=== PATIENT | male | born 1995 | race Caucasian/White ===

== ENCOUNTER 2021-10-15 14:01 | Emergency (ER) | payer OTHER ==
[~2021-10-15] VITALS: Ht 175.3 cm; Wt 65.8 kg
[2021-10-15] MEDS ORDERED: Norco 5-325 Ta1 EACH PO (14:48)
== END 2021-10-15 15:13 | disposition home or self-care (01) ==
LOC: ER 14:01
DX: S93.402A Sprain of unspecified ligament of left ankle, initial encounter (principal); Z88.0 Allergy status to penicillin; W18.30XA Fall on same level, unspecified, initial encounter
CPT/HCPCS: 29515; 73610; 99283-25; A9270

== ENCOUNTER 2024-05-07 20:01 | Emergency (ER) | payer OTHER ==
[~2024-05-07] VITALS: Ht 175.3 cm; Wt 90.7 kg
[~2024-05-07 20:01] MED LIST: Norco 5-325 Ta1 EACH PO
[2024-05-07] MEDS ORDERED: FentaNYL Citrate 50 MCG/ML 2 ML Injection IV ONE (20:15)
[2024-05-07] MEDS ORDERED: Ondansetron HCl 2 MG / ML 2ML Vial IV ONE (20:25)
[2024-05-07 20:57] LABS: BASOPHILS ABSOLUTE AUTO 0.05 K/mm3 (0.00-0.23); BASOPHILS PERCENT AUTO 0 % (0-2); EOSINOPHILS ABSOLUTE AUTO 0.01 K/mm3 (0.00-0.68); EOSINOPHILS PERCENT AUTO 0 % (0-6); Hematocrit 38.1 % (37.0-53.0); Hemoglobin 12.9 g/dL (13.5-17.5); IMMATURE GRAN ABSOLUTE AUTO 0.16 K/mm3 (0.00-0.10); IMMATURE GRAN PERCENT AUTO 1 % (0-1); LYMPHOCYTES ABSOLUTE AUTO 1.31 K/mm3 (0.84-5.20); LYMPHOCYTES PERCENT AUTO 8 % (21-46); MONOCYTES ABSOLUTE AUTO 0.83 K/mm3 (0.16-1.47); MONOCYTES PERCENT AUTO 5 % (4-13); Mean Corpuscular HGB 30.1 pg (26.0-34.0); Mean Corpuscular HGB Conc 33.9 g/dL (31.5-36.5); Mean Corpuscular Volume 89 fL (80-100); Mean Platelet Volume 11.8 fL (9.1-12.4); NEUTROPHILS ABSOLUTE AUTO 13.69 K/mm3 (1.96-9.15); NEUTROPHILS PERCENT AUTO 85 % (41-73); Platelet Count 211 K/mm3 (150-400); RDW Coefficient Variation 12.4 % (11.7-14.2); RDW Standard Deviation 40.3 fL (35.1-46.3); Red Blood Cell Count 4.28 M/mm3 (4.30-5.90); White Blood Cell Count 16.05 K/mm3 (4.00-11.30)
[2024-05-07 21:14] LABS: Albumin, Blood 4.2 g/dL (3.4-5.0); Albumin/Globulin Ratio 1.8 (0.8-1.8); Bilirubin, Total 0.7 mg/dL (0.1-1.0); Calcium, Blood 8.2 mg/dL (8.5-10.1); Creatinine, Blood 1.09 mg/dL (0.60-1.20); Globulin, Blood 2.4 g/dL (2.2-4.0); Potassium, Blood 3.7 mmol/L (3.5-5.5); Total Protein, Blood 6.6 g/dL (6.4-8.2)
[2024-05-07] MEDS ORDERED: LORazepam 2 MG/ML 1ML Injection IV ONE (21:35)
[2024-05-07] MEDS ORDERED: Ketorolac Tromethamine 30mg Vial IV ONE (22:35)
[2024-05-07] MEDS ORDERED: RX Prepack 6 Tabs Oxycodone 5mg UD ONE (23:25)
[2024-05-07 23:30] VITALS: BP 139/51
[2024-05-07] MEDS ORDERED: RX Prepack 2 Sprays Naloxone HCL 4 MG/SPRAY UD ONE (23:30)
== END 2024-05-07 23:53 | disposition home or self-care (01) ==
LOC: ER 20:01
PROVIDERS: Physician Assistant
DX: S27.0XXA Traumatic pneumothorax, initial encounter (principal); S42.002A Fracture of unspecified part of left clavicle, initial encounter for closed fracture; S22.32XA Fracture of one rib, left side, initial encounter for closed fracture; F41.9 Anxiety disorder, unspecified; V89.2XXA Person injured in unspecified motor-vehicle accident, traffic, initial encounter; F17.290 Nicotine dependence, other tobacco product, uncomplicated
CPT/HCPCS: 70450; 71260; 72125; 74177; 80053; 85025; 96374-59; 96375; 99285-25; A9270; J1885; J2060; J2405; J3010; L0160; Q9967